=== PATIENT | male | born 2000 | race Caucasian/White ===

== ENCOUNTER 2022-02-19 22:46 | Emergency (ER) | payer OTHER ==
[~2022-02-19] VITALS: Ht 185 cm; Wt 106.9 kg
[2022-02-19 22:59] VITALS: BP 135/88
--- NOTE | 2022-02-19 23:05 | ED Upper Extremity ---
General Chief Complaint: Laceration Stated Complaint: R ARM INJURY Source: patient Exam Limitations: no limitations (MARY OSEGUERA MED STUDENT) History of Present Illness Date Seen by Provider: Feb 19, 2022 Time Seen by Provider: 22:52 Initial Comments Mr. Chowdary is a 21yo male with no significant PMH and up to date on tetanus shot that presents to ER due to R elbow injury. States that he cut his elbow on a piece of broken glass from a cup that had fallen. It was bleeding a bit and states it freaked him out. The laceration is bandaged on his arrival. There does not appear to be any debris in the wound, there is minimal bleeding on inspection. He has not been drinking tonight. NKDA. Does not use tobacco or recreational drugs. (MARY OSEGUERA MED STUDENT) Allergies and Home Medications Allergies Coded Allergies: No Known Drug Allergies (Unverified , 02/19/22) Patient Home Medication List Home Medication List Reviewed: Yes (TANIYA MARR MD) No Active Prescriptions or Reported Meds Review of Systems Constitutional: No chills, No fever Respiratory: No cough, No short of breath Cardiovascular: No chest pain, No palpitations Gastrointestinal: No abdominal pain, No constipation, No diarrhea, No nausea, No vomiting Genitourinary: No dysuria, No hematuria Musculoskeletal: No joint pain, No joint swelling Skin: lesions (R elbow ~1.5cm laceration); No rash Psychiatric/Neurological: Denies Headache, Denies Numbness (MARY OSEGUERA MED STUDENT) Past Eokvtgd-Ewomcb-Cnneak Hx Patient Social History Tobacco Use?: No Use of E-Cig and/or Vaping dev: No Substance use?: No Alcohol Use?: No (TANIYA MARR MD) Past Medical History Surgeries: No Respiratory: No Cardiac: No Neurological: No Reproductive Disorders: No Genitourinary: No Gastrointestinal: No Musculoskeletal: No Endocrine: No HEENT: No Cancer: No Integumentary: No (TANIYA MARR MD) Physical Exam Vital Signs Vital Signs - First Documented 02/19/22 22:59 Temp 36.6 Pulse 106 Resp 14 B/P (MAP) 135/88 (104) Pulse Ox 98 O2 Delivery Room Air (TANIYA MARR MD) Vital Signs Capillary Refill : (MARY OSEGUERA MED STUDENT) Height, Weight, BMI Height: '" Weight: lbs. oz. kg; BMI Method: General Appearance: WD/WN, no apparent distress Cardiovascular: regular rate, rhythm, no murmur Respiratory: chest non-tender, lungs clear, normal breath sounds Gastrointestinal: normal bowel sounds, non tender, soft Elbow/Forearm: Right (Laceration on elbow ~1.5cm, dressed. Minimal bleeding. Deep. ) Neurologic/Tendon: normal sensation, normal motor functions Neurologic/Psychiatric: alert, normal mood/affect, oriented x 3 Skin: normal color, warm/dry (MARY OSEGUERA MED STUDENT) Procedures/Interventions Wound Location: Upper Extremities Other Wound Location Right elbow Wound Length (cm): 1.5 Wound's Depth, Shape: linear, sub Q Wound Explored: no foreign body removed Irrigated w/ Saline (ccs): 200 Betadine Prep?: Yes Anesthesia: 1% Lidocaine Volume Anesthetic (ccs): 4 Suture: Prolene Suture Size: 4-0 Number of Sutures: 4 Layer Closure?: 1 Sterile Dressing Applied?: Yes Progress Wound was sprayed with lidocaine. Skin was cleaned with alcohol. Local anesthetic was provided with lidocaine injection. Wound was then scrubbed with saline and chlorhexidine, irrigated with same solution, and rinsed with saline. Betadine prep was applied. Wound was approximated with Prolene 4-0 sutures in an interrupted fashion by Mary Oseguera, MS 4 under my supervision. There were no complications. Wound was dressed by nursing staff. (TANIYA MARR MD) Progress/Results/Core Measures Results/Orders My Orders Orders - TANIYA MARR MD Lidocaine 1% Inj 50 Ml (Xylocaine 1% Inj (02/19/22 23:15) (TANIYA MARR MD) Medications Given in ED (TANIYA MARR MD) Vital Signs/I&O (TANIYA MARR MD) Departure Impression Primary Impression: Laceration of elbow Qualified Codes: S51.011A - Laceration without foreign body of right elbow, initial encounter Disposition: 01 HOME, SELF-CARE Condition: Improved Departure-Patient Inst. Decision time for Depature: 23:33 (TANIYA MARR MD) Patient Instructions: Laceration Repair With Stitches ED Add. Discharge Instructions: Keep the wound clean and dry except for normal showering. Do not submerge until sutures are removed. Keep wound covered when sleeping, active, or in dirty environments. When awake and at rest in a clean environment, you may keep the wound open to air. Expect some mild oozing of blood and clear yellowish fluid for the next 48 hours. Monitor for signs of infection such as increasing redness, increasing pain, puslike drainage, or fever. Return to care promptly if you notice the symptoms. Return in 10 days to have the sutures removed. Return to the ER if you have any other complications or concerns and would like to have the wound evaluated again. All discharge instructions reviewed with patient and/or family. Voiced unde rstanding. Scripts No Active Prescriptions or Reported Meds Medical Student Attestation and Attending Note: I have personally interviewed and examined this patient along with Mary Oseguera, MS 4. I have reviewed student documentation including history, physical, and assessments. I agree with the documentation except where otherwise noted. Exam: General: Alert, oriented, no acute distress, well developed HEENT: Normocephalic and atraumatic Lungs: normal effort Extremities: 1.5 to 2 cm laceration on the right elbow into the subcutaneous tissue. No foreign body identified. No evident injury to tendon, fascia, or other deep structures. Neuropsych: Alert, oriented, no focal deficits Skin: Warm and dry without rashes, laceration as above (TANIYA MARR MD) MARY OSEGUERA MED STUDENT Feb 19, 2022 23:05 TANIYA MARR MD Feb 19, 2022 23:35
[2022-02-19] MEDS ORDERED: LIDOCAINE 1% INJ 50 ML (XYLOCAINE) VIAL IJ ONE (23:15)
== END 2022-02-19 23:49 | disposition home or self-care (01) ==
LOC: ER 22:49
DX: S51.011A Laceration without foreign body of right elbow, initial encounter (principal); W25.XXXA Contact with sharp glass, initial encounter
CPT/HCPCS: 12001